=== PATIENT | male | born 1955 | race Caucasian/White ===

== ENCOUNTER → 2022-04-13 | Day surgery (SDC) | payer MEDICARE ==
[~2022-04-13] MED LIST: APPLE CIDER VI300 MG PO; HUMALOG100 UNIT/3 SC; JANUVIA100 MG PO; LEVEMIR FL100 UNIT/1 SQ; LEVEMIR100 UNIT/1 SQ; LEVOTHYROXINE75 MCG PO; LISINOPRIL5 MG PO; OZEMPIC1 MG/0.71 SQ; PIOGLITAZONE HC45 MG PO; PROTONIX 40 MG40 M1 PO; SIMVASTATIN5 MG PO; VAZALORE81 MG PO; VITAMIN C500 MG PO
== END | disposition home or self-care (01) ==
LOC: OR 05:34
DX: Z12.11 Encounter for screening for malignant neoplasm of colon (principal); K57.30 Diverticulosis of large intestine without perforation or abscess without bleeding; E11.9 Type 2 diabetes mellitus without complications; M19.90 Unspecified osteoarthritis, unspecified site; Z79.4 Long term (current) use of insulin; Z79.82 Long term (current) use of aspirin; Z79.899 Other long term (current) drug therapy
CPT/HCPCS: 82962; J2704